=== PATIENT | male | born 1975 | race Caucasian/White ===

== ENCOUNTER 2022-11-24 08:16 | Day surgery (SDC) | payer BC, OTHER ==
[~2022-11-24] VITALS: Ht 170.2 cm; Wt 95.3 kg
[~2022-11-24 08:16] MED LIST: FENOFIBRATE54 MG PO; FISH OIL1200 M1 PO; JARDIANCE10 MG PO; MULTIVITAMI9 PO; NAPROXEN500 MG PO; SIMVASTATIN20 M1 PO; TADALAFIL10 MG; ZESTRIL10 M1 PO
[2022-11-24 10:48] VITALS: BP 127/66
== END 2022-11-24 10:56 | disposition home or self-care (01) | DRG 951 ==
LOC: ENDO 08:16
PROVIDERS: ATTEND Surgery
PROC: 0DBK8ZX Excision of Ascending Colon, Via Natural or Artificial Opening Endoscopic, Diagnostic (ICD-10-PCS; principal; 2022-11-24)
PROC: 0DBL8ZX Excision of Transverse Colon, Via Natural or Artificial Opening Endoscopic, Diagnostic (ICD-10-PCS; 2022-11-24)
PROC: 0DBN8ZX Excision of Sigmoid Colon, Via Natural or Artificial Opening Endoscopic, Diagnostic (ICD-10-PCS; 2022-11-24)
PROC: 0DBM8ZX Excision of Descending Colon, Via Natural or Artificial Opening Endoscopic, Diagnostic (ICD-10-PCS; 2022-11-24)
DX: Z12.11 Encounter for screening for malignant neoplasm of colon (principal); D12.2 Benign neoplasm of ascending colon; D12.4 Benign neoplasm of descending colon; D12.3 Benign neoplasm of transverse colon; D12.5 Benign neoplasm of sigmoid colon; K57.30 Diverticulosis of large intestine without perforation or abscess without bleeding; K64.8 Other hemorrhoids; I10 Essential (primary) hypertension; E11.9 Type 2 diabetes mellitus without complications; H91.90 Unspecified hearing loss, unspecified ear; Z96.21 Cochlear implant status; Z79.84 Long term (current) use of oral hypoglycemic drugs

== ENCOUNTER 2023-09-18 21:07 | Emergency (ER) | payer BC, OTHER ==
[~2023-09-18] VITALS: Ht 170.2 cm; Wt 99.0 kg
[2023-09-18 21:54] VITALS: BP 144/87
[2023-09-18 22:00] VITALS: BP 157/92
[2023-09-18 22:19] LABS: BASO% 0.2 % (0-3); HEMATOCRIT 47.9 % (39.0-50.0); HEMOGLOBIN 16.6 g/dl (14.0-18.0); IMMATURE GRANULOCYTES 1.4 % (0.0-5.0); LYMPH% 5.5 % (15-41); MEAN CELL VOLUME 93.6 fL CALC (80.0-100.0); MEAN CORPUSCULAR HGB 32.4 pG CALC (26.0-32.0); MEAN CORPUSCULAR HGB CONC 34.7 g/dL CAL (32.0-36.0); MONO% 4.7 % (2-13); NEUT# 23.46 thou/uL (1.82-7.42); NEUT% 88.2 % (42-76); RED BLOOD COUNT 5.12 mill/uL (4.70-6.10); RED CELL DISTRI WIDTH 11.8 % (11.5-15.5)
[2023-09-18 22:35] LABS: ALBUMIN 4.1 g/dL (3.2-5.0); ALKALINE PHOSPHATASE 92 u/l (38-126); ANION GAP 15 (6-22 (CALC)); BILIRUBIN, TOTAL 1.3 mg/dL (0.2-1.3); BUN 16 mg/dL (9-20); BUN/CREATININE RATIO 16 (12-20 (CALC)); CARBON DIOXIDE 18 mmol/l (22-30); CHLORIDE 99 mmol/l (95-108); GFR FOR AFR.AMER. > 60 ML/MIN (>=60 (CALC)); GFR OTHER RACES > 60 ML/MIN (>=60 (CALC)); POTASSIUM 3.7 mmol/l (3.5-5.1); SGOT/AST 46 u/l (17-59); SODIUM 128 mmol/l (137-146); TOTAL PROTEIN 7.7 g/dL (6.3-8.2)
[2023-09-19] MEDS ORDERED: TOPROL XL25 M1 PO (00:16)
[2023-09-19 00:27] LABS: URINE BLOOD DIPSTICK Moderate (NEGATIVE); URINE COLOR Yellow; URINE GLUCOSE - DIPSTICK 500 mg/dL (NEGATIVE); URINE KETONE 80 mg/dL (NEGATIVE); URINE LEUK ESTERASE Negative (NEGATIVE); URINE NITRITE - DIPSTICK Negative (Negative); URINE PH 5.5 (4.5-8.0); URINE PROTEIN - DIPSTICK >=300 mg/dL (NEG-TRACE); URINE SPECIFIC GRAVITY >=1.030
[2023-09-19 00:38] LABS: URINE BACTERIA FEW hpf; URINE MUCUS FEW hpf (NONE-FEW); URINE SQUAMOUS EPITHELIAL CELL FEW EPI/hpf (0-FEW)
[2023-09-19 02:35] VITALS: BP 152/78
[2023-09-19 02:45] VITALS: BP 136/77
[2023-09-19 03:00] VITALS: BP 137/76
[2023-09-19 05:13] VITALS: BP 149/79
[2023-09-19 05:15] VITALS: BP 150/81
[2023-09-19 05:20] VITALS: BP 150/81
== END 2023-09-19 05:40 | disposition short-term general hospital (02) | DRG 204 ==
LOC: ED 21:07
PROVIDERS: Family Medicine
DX: R91.8 Other nonspecific abnormal finding of lung field (principal); R09.02 Hypoxemia; H91.90 Unspecified hearing loss, unspecified ear; Z96.21 Cochlear implant status; Z87.891 Personal history of nicotine dependence; Z20.822 Contact with and (suspected) exposure to COVID-19
CPT/HCPCS: Q9967

== ENCOUNTER 2024-08-25 10:26 | Emergency (ER) | payer BC ==
[~2024-08-25] VITALS: Ht 170.2 cm; Wt 90.7 kg
[~2024-08-25 10:26] MED LIST changes: +TOPROL XL25 M1 PO
[2024-08-25 11:26] LABS: URINE BILIRUBIN - DIPSTICK Negative (NEGATIVE); URINE BLOOD DIPSTICK Trace-lysed (NEGATIVE); URINE GLUCOSE - DIPSTICK 500 mg/dL (NEGATIVE); URINE KETONE Negative (NEGATIVE); URINE LEUK ESTERASE Negative (NEGATIVE); URINE NITRITE - DIPSTICK Negative (Negative); URINE PH 5.5 (4.5-8.0); URINE PROTEIN - DIPSTICK Negative (NEG-TRACE); URINE UROBILINOGEN - DIPSTICK 0.2 E.U./dL (0.2)
[2024-08-25 11:27] LABS: URINE COLOR Yellow
[2024-08-25 13:37] LABS: BASO% 0.6 % (0-3); EOS% 1.9 % (0-8); HEMATOCRIT 48.3 % (39.0-50.0); HEMOGLOBIN 15.9 g/dl (14.0-18.0); IMMATURE GRANULOCYTES 0.3 % (0.0-5.0); LYMPH% 31.5 % (15-41); MEAN CORPUSCULAR HGB 32.9 pG CALC (26.0-32.0); MEAN CORPUSCULAR HGB CONC 32.9 g/dL CAL (32.0-36.0); MONO% 7.2 % (2-13); NEUT# 3.9 thou/uL (1.82-7.42); NEUT% 58.5 % (42-76); RED BLOOD COUNT 4.84 mill/uL (4.70-6.10)
[2024-08-25 13:50] LABS: CREATININE 0.8 mg/dL (0.7-1.3); POTASSIUM 4.4 mmol/l (3.5-5.1)
[2024-08-25 13:58] LABS: MEAN CELL VOLUME 99.8 fL CALC (80.0-100.0)
[2024-08-25] MEDS ORDERED: PYRIDIUM200 MG PO (15:40)
[2024-08-25] MEDS ORDERED: TAMSULOSIN0.4 MG PO (15:40)
[2024-08-25 15:57] VITALS: BP 127/75
== END 2024-08-25 16:02 | disposition home or self-care (01) | DRG 726 ==
LOC: ED 10:26
PROVIDERS: Family Medicine
DX: N40.1 Benign prostatic hyperplasia with lower urinary tract symptoms (principal); R30.0 Dysuria; H91.90 Unspecified hearing loss, unspecified ear; Z96.21 Cochlear implant status